=== PATIENT | male | born 1985 | race American Indian/Alaskan Native ===

== ENCOUNTER 2021-08-11 13:08 | Emergency (ER) | payer SELFPAY ==
--- NOTE | 2021-08-11 15:15 | Emergency Department Report ---
ED Male HPI - General Chief complaint: GI Bleed Stated complaint: STOMACH ACH WITH BLEEDING Time Seen by Provider: 08/11/21 14:19 Source: patient Mode of arrival: Ambulatory Limitations: No Limitations - History of Present Illness Initial comments: Chief complaint: Rectal discharge HPI: This 36-year-old male who presents with rectal discharge. He has history of hemorrhoid. He recently had unprotected anal receptive intercourse. He does take PrEP therapy in order to prevent HIV infection. He has mostly mucus covered in stool. Mild irritation. He denies abdominal pain denies fever. MD Complaint: other (Rectal discharge history of anal intercourse) -: Gradual, days(s) (Several days) Severity: mild Consistency: constant Improves with: none Worsens with: other (Bowel movement) denies other symptoms - Related Data Allergies Allergy/AdvReac Type Severity Reaction Status Date / Time No Known Allergies Allergy Verified 08/11/21 13:32 ED Review of Systems ROS: Stated complaint: STOMACH ACH WITH BLEEDING Other details as noted in HPI Comment: All other systems reviewed and negative Constitutional: denies: chills, fever, malaise Respiratory: denies: cough, shortness of breath Cardiovascular: denies: chest pain Gastrointestinal: denies: abdominal pain, nausea, vomiting Musculoskeletal: denies: back pain Skin: denies: rash, lesions ED Past Medical Hx - Past Medical History Previous Medical History?: No - Social History Smoking Status: Never Smoker Substance Use Type: Alcohol ED Physical Exam - General Limitations: No Limitations General appearance: alert, in no apparent distress - Head Head exam: Present: atraumatic, normocephalic - Eye Eye exam: Present: normal appearance - ENT ENT exam: Present: mucous membranes moist - Neck Neck exam: Present: normal inspection, full ROM - Respiratory Respiratory exam: Present: normal lung sounds bilaterally. Absent: respiratory distress, wheezes, rales, rhonchi - Cardiovascular Cardiovascular Exam: Present: regular rate, normal rhythm, normal heart sounds. Absent: systolic murmur, diastolic murmur, rubs, gallop - GI/Abdominal GI/Abdominal exam: Present: soft, normal bowel sounds. Absent: distended, tenderness, guarding, rebound - Rectal Rectal exam: Present: normal inspection, normal rectal tone, hemorrhoids (Large nonthrombosed hemorrhoid) - Extremities Exam Extremities exam: Present: normal inspection - Back Exam Back exam: Present: normal inspection - Neurological Exam Neurological exam: Present: alert, oriented X3 - Psychiatric Psychiatric exam: Present: normal affect, normal mood - Skin Skin exam: Present: warm, dry, intact, normal color. Absent: rash ED Course Vital Signs 08/11/21 08/11/21 15:48 15:50 Temperature 98.7 F Pulse Rate 70 Respiratory 18 18 Rate Blood Pressure 130/77 [Left] O2 Sat by Pulse 100 100 Oximetry ED Medical Decision Making - Medical Decision Making Proctitis: Patient received ceftriaxone and azithromycin emergency department. He will follow-up with his home clinic for STD testing. Referred to general surgeon for hemorrhoid therapy. Patient desires surgical treatment. Critical care attestation.: If time is entered above; I have spent that time in minutes in the direct care of this critically ill patient, excluding procedure time. ED Disposition Clinical Impression: Acute proctitis, Hemorrhoid Disposition: HOME / SELF CARE / HOMELESS Is pt being admited?: No Does the pt Need Aspirin: No Condition: Stable Instructions: Hemorrhoids, [id number], Proctitis Referrals: GRACIELA FLOWERS DO [Staff Physician] - 3-5 Days
[2021-08-11] MEDS ORDERED: AZITHROMYCIN 250 MG TAB PO ONE (15:16)
[2021-08-11] MEDS ORDERED: LIDOCAINE-MPF (1%) 10 MG/1 ML VIAL 5 ML INFILTRATI ONE (15:16)
[2021-08-11] MEDS ORDERED: ONDANSETRON 4 MG ODT TAB PO ONE (15:16)
[2021-08-11 15:50] VITALS: BP 130/77
== END 2021-08-11 16:42 | disposition home or self-care (01) ==
LOC: ED 13:08
DX: K64.9 Unspecified hemorrhoids (principal); K62.89 Other specified diseases of anus and rectum
CPT/HCPCS: 96372; 99282; J0696; Q0162

== ENCOUNTER 2021-09-07 00:37 | Emergency (ER) | payer SELFPAY ==
[2021-09-07 00:40] VITALS: BP 123/72
[2021-09-07] MEDS ORDERED: LIDOCAINE VISCOUS 2% 15 ML ORAL LIQD PO ONE (01:31)
[2021-09-07] MEDS ORDERED: LIDOCAINE-MPF (1%) 10 MG/1 ML VIAL 5 ML INFILTRATI ONE (01:31)
[2021-09-07] MEDS ORDERED: dexAMETHasone 20 MG/5 ML VIAL IM ONE (01:31)
[2021-09-07] MEDS ORDERED: ACETAMINOPHEN 500 MG TAB PO ONE (01:32)
[2021-09-07] MEDS ORDERED: IBUPROFEN 600 MG TAB PO ONE (01:32)
[2021-09-07] MEDS ORDERED: FAMOTIDINE 20 MG TAB PO ONE (01:33)
--- NOTE | 2021-09-07 02:24 | Emergency Department Report ---
ED General Adult HPI - General Chief complaint: Chest Pain Stated complaint: CHEST PAIN Source: patient Mode of arrival: Ambulatory Limitations: No Limitations - History of Present Illness Initial comments: Patient is a 36-year-old -[place] male with no past medical history presents to the ED with complaint of acute onset persistent severe sore throat, dysphagia, bilateral ear pain, frontal sinus pressure, nasal and sinus congestion for the last 3 days. Patient states that he has not been able to swallow anything including fluids in the last 3 days since the onset of the symptoms. Patient states that no one is at home is at similar symptoms. Patient denies dizziness, syncope, fever, chills, nausea, vomiting, diarrhea, chest pain or shortness of breath, cough, neck pain, headache or change in vision. MD Complaint: Sore throat, bilateral ear pain, epigastric burning pain. -: Sudden, days(s) (3) Location: mouth, chest Radiation: non-radiation Severity scale (0 -10): 6 Quality: aching, sharp Consistency: constant Improves with: none Associated Symptoms: denies other symptoms, loss of appetite, malaise. denies: confusion, chest pain, cough, diaphoresis, fever/chills, headaches, nausea/vomiting, rash, seizure, shortness of breath, syncope, weakness Treatments Prior to Arrival: none - Related Data Previous Rx's Medication Instructions Recorded Last Taken Type Amoxicillin/Potassium Clav 1 each PO Q12H #20 tablet 09/07/21 Unknown Rx [Augmentin 875-125 Tablet] Cetirizine HCl [Zyrtec 10mg tab] 10 mg PO DAILY #30 tablet 09/07/21 Unknown Rx Ibuprofen [Motrin] 600 mg PO Q8H PRN #30 tablet 09/07/21 Unknown Rx Lidocaine Viscous 2% 15 ml PO Q6H PRN #120 ml 09/07/21 Unknown Rx Ondansetron [Zofran Odt] 4 mg PO Q6HR PRN #15 tab.rapdis 09/07/21 Unknown Rx Allergies Allergy/AdvReac Type Severity Reaction Status Date / Time No Known Allergies Allergy Verified 08/11/21 13:32 ED Review of Systems ROS: Stated complaint: CHEST PAIN Other details as noted in HPI Constitutional: denies: chills, fever Eyes: denies: eye pain, eye discharge, vision change ENT: ear pain (Bilateral ear pain), throat pain, congestion Respiratory: denies: cough, shortness of breath, wheezing Cardiovascular: denies: chest pain, palpitations Endocrine: no symptoms reported Gastrointestinal: abdominal pain (Burning epigastric pain). denies: nausea, vomiting, diarrhea Genitourinary: denies: urgency, dysuria Musculoskeletal: denies: back pain, joint swelling, arthralgia Skin: denies: rash, lesions Neurological: denies: headache, weakness, paresthesias Psychiatric: denies: anxiety, depression Hematological/Lymphatic: denies: easy bleeding, easy bruising ED Past Medical Hx - Past Medical History Previous Medical History?: No - Surgical History Past Surgical History?: No - Social History Smoking Status: Never Smoker Substance Use Type: Alcohol - Medications Home Medications: Home Medications Medication Instructions Recorded Confirmed Last Taken Type Amoxicillin/Potassium Clav 1 each PO Q12H #20 tablet 09/07/21 Unknown Rx [Augmentin 875-125 Tablet] Cetirizine HCl [Zyrtec 10mg tab] 10 mg PO DAILY #30 tablet 09/07/21 Unknown Rx Ibuprofen [Motrin] 600 mg PO Q8H PRN #30 tablet 09/07/21 Unknown Rx Lidocaine Viscous 2% 15 ml PO Q6H PRN #120 ml 09/07/21 Unknown Rx Ondansetron [Zofran Odt] 4 mg PO Q6HR PRN #15 tab.rapdis 09/07/21 Unknown Rx ED Physical Exam - General Limitations: No Limitations General appearance: alert, in no apparent distress - Head Head exam: Present: atraumatic, normocephalic, normal inspection - Eye Eye exam: Present: normal appearance, PERRL, EOMI Pupils: Present: normal accommodation - ENT ENT exam: Present: mucous membranes moist, other (Erythematous bulging bilateral tympanic membrane; erythematous oropharynx and tonsils with patchy thick white exudates; grossly congested nasal passages with palpable frontal and maxillary sinus tenderness) - Neck Neck exam: Present: normal inspection, full ROM, lymphadenopathy (Palpable tender bilateral anterior cervical lymphadenopathy) - Respiratory Respiratory exam: Present: normal lung sounds bilaterally. Absent: respiratory distress, wheezes, rales, chest wall tenderness, accessory muscle use, decreased breath sounds - Cardiovascular Cardiovascular Exam: Present: regular rate, normal rhythm, normal heart sounds. Absent: systolic murmur, diastolic murmur, rubs, gallop - GI/Abdominal GI/Abdominal exam: Present: soft, normal bowel sounds. Absent: tenderness, guarding, rebound, hyperactive bowel sounds, hypoactive bowel sounds, organomegaly - Extremities Exam Extremities exam: Present: normal inspection, full ROM, normal capillary refill - Back Exam Back exam: Present: normal inspection, full ROM. Absent: tenderness, CVA tenderness (R), muscle spasm - Neurological Exam Neurological exam: Present: alert, oriented X3, CN II-XII intact, normal gait, reflexes normal - Psychiatric Psychiatric exam: Present: normal affect, normal mood - Skin Skin exam: Present: warm, dry, intact, normal color. Absent: rash ED Course Vital Signs 09/07/21 00:39 Temperature 99.2 F Pulse Rate 90 Respiratory 18 Rate Blood Pressure 123/72 [Left] O2 Sat by Pulse 98 Oximetry ED Medical Decision Making - Medical Decision Making This is a 36-year-old -[place] male with no past medical history presents to the ED with complaint of acute onset persistent severe sore throat, dysphagia, bilateral ear pain, frontal sinus pressure, nasal and sinus congestion for the last 3 days. Patient states that he has not been able to swallow anything including fluids in the last 3 days since the onset of the symptoms. Patient states that no one is at home is at similar symptoms. In the ED, patient is alert and oriented x3 and is not in any distress. Patient was treated for pain in the ED was given initial oral antibiotics. Patient was therefore discharged home on pain medication and antibiotics for suspected bacterial tonsillitis and otitis media bilaterally. Patient was advised to follow-up with his primary care physician in 7 to 10 days for reevaluation return to the ED immediately if symptoms get worse. - Differential Diagnosis Strep pharyngitis; bacterial tonsillitis; otitis media; URI; sinusitis; Critical care attestation.: If time is entered above; I have spent that time in minutes in the direct care of this critically ill patient, excluding procedure time. ED Disposition Clinical Impression: Acute bacterial tonsillitis, Acute bacterial pharyngitis, Acute otitis media with effusion of both ears Acute sinusitis, unspecified Qualifiers: Sinusitis location: pansinusitis Recurrence: non-recurrent Qualified Code(s): J01.40 - Acute pansinusitis, unspecified Disposition: 01 HOME / SELF CARE / HOMELESS Is pt being admited?: No Does the pt Need Aspirin: No Condition: Stable Instructions: Otitis Media, Adult, [id number], Sinusitis, Adult, [id number], Pharyngitis, [id number], Tonsillitis, [id number] Additional Instructions: Take medication with food, drink plenty of fluids and follow-up with your primary care physician in 7 to 10 days for reevaluation. Return to the ED immediately if symptoms get worse. Prescriptions: Amoxicillin/Potassium Clav [Augmentin 875-125 Tablet] 1 each PO Q12H #20 tablet Lidocaine Viscous 2% 15 ml PO Q6H PRN #120 ml PRN Reason: Sore Throat Ibuprofen [Motrin] 600 mg PO Q8H PRN #30 tablet PRN Reason: Pain Ondansetron [Zofran Odt] 4 mg PO Q6HR PRN #15 tab.rapdis PRN Reason: Nausea Cetirizine HCl [Zyrtec 10mg tab] 10 mg PO DAILY #30 tablet Referrals: [facility] [Provider Group] - 7-10 days Forms: Work/School Release Form(ED) Time of Disposition: 02:27 Print Language: YORUBA
--- NOTE | 2021-09-08 14:36 | Electrocardiograph Report ---
[facility] Test Date: 2021-09-07 Test Time: 01:05:42 Pat Name: GUTIERREZ ROMERO Department: Room: Gender: M Strategic Account Director: JUN : 1985 Requested By: MAC SANCHEZ Order Number: [id number] Reading MD: Bert Dunn Measurements Intervals [place] Rate: 86 P: 79 KS: 167 QRS: 76 QRSD: 82 T: 54 QT: 352 QTc: 421 Interpretive Statements Sinus rhythm ST elevation consider early repolarization No previous ECG available for comparison Electronically Signed On 09-08-2021 14:35:39 EST by Bert Dunn
== END 2021-09-07 03:29 | disposition home or self-care (01) ==
LOC: ED 00:37
DX: J01.90 Acute sinusitis, unspecified (principal); J03.90 Acute tonsillitis, unspecified; H65.193 Other acute nonsuppurative otitis media, bilateral
CPT/HCPCS: 93005; 96372; 99282; J0696; J1100; J3490

== ENCOUNTER 2022-06-28 18:22 | Emergency (ER) | payer SELFPAY | END 2022-06-29 02:23 | disposition left against medical advice (07) | LOC: ED 18:22 | DX: R10.9 Unspecified abdominal pain (principal); Z53.21 Procedure and treatment not carried out due to patient leaving prior to being seen by health care provider ==